=== PATIENT | female | born 1970 | race American Indian/Alaskan Native ===

== ENCOUNTER 2019-06-01 13:29 | Emergency (ER) | payer SELFPAY ==
[2019-06-01] MEDS ORDERED: HYDROcodone/ACETAMINOPHEN 5-325 MG TAB PO ONE (14:02)
[2019-06-01] MEDS ORDERED: IBUPROFEN 800 MG TAB PO ONE (14:02)
[2019-06-01] MEDS ORDERED: TETANUS,DIPH,PERTUSS(ACELL) VACCINE 0.5 ML SYRINGE IM ONE (14:02)
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
[2019-06-01 16:49] VITALS: BP 129/73
== END 2019-06-01 17:01 | disposition home or self-care (01) ==
LOC: ED 13:29
DX: T22.20XA Burn of second degree of shoulder and upper limb, except wrist and hand, unspecified site, initial encounter (principal); X15.8XXA Contact with other hot household appliances, initial encounter; Y93.89 Activity, other specified; Y92.89 Other specified places as the place of occurrence of the external cause; Y99.8 Other external cause status
CPT/HCPCS: 90471; 90715; 99282

== ENCOUNTER 2019-10-06 19:58 | Emergency (ER) | payer OTHER ==
[2019-10-06 21:23] VITALS: BP 130/60
--- NOTE | 2019-10-06 21:37 | Emergency Department Report ---
Blank Doc - Documentation Documentation: 49-year-old female that presents with abscess to buttock area. Patient has ta chycardia and fever in triage. This initial assessment/diagnostic orders/clinical plan/treatment(s) is/are subject to change based on patient's health status, clinical progression and re- assessment by fellow clinical providers in the ED. Further treatment and workup at subsequent clinical providers discretion. Patient/guardians urged not to elope from the ED as their condition may be serious if not clinically assessed and managed. Initial orders include: 1- Patient sent to [facility] for further evaluation and treatment 2- labs
[2019-10-06] MEDS ORDERED: IBUPROFEN 600 MG TAB PO ONE (21:38)
[2019-10-06 21:53] LABS: Hematocrit 28.6 % (30.3-42.9); Hemoglobin 9.1 gm/dl (10.1-14.3); Mean Corpuscular HGB Conc 32 % (30-34); Mean Corpuscular Volume 75 fl (79-97); Platelet Count 455 K/mm3 (140-440); Red Blood Count 3.84 M/mm3 (3.65-5.03)
[2019-10-06 21:54] LABS: Red Cell Distribution Width 23.1 % (13.2-15.2)
[2019-10-06 22:10] LABS: BUN/Creatinine Ratio 14; Blood Urea Nitrogen 11 mg/dL (7-17); Calcium 9.7 mg/dL (8.4-10.2); Hemolysis Index 3
[2019-10-06 22:26] LABS: Basophils % (Manual) 0 % (0.0-1.8); Eosinophils % (Manual) 0 % (0.0-4.3); Total Cells Counted 100
[2019-10-06 22:28] LABS: Anisocytosis 2+; Large Platelets Few; Platelet Estimate Consistent w Auto; Target Cells Few; Tear Drop Cells Rare
[2019-10-07] MEDS ORDERED: IBUPROFEN 600 MG TAB PO ONE (00:04)
[2019-10-07] MEDS ORDERED: SULFAMETHOXAZOLE/TRIMETHOPRIM 800/160MG DS TAB PO ONE (00:30)
[2019-10-07] MEDS ORDERED: HYDROmorphone 1 MG/1 ML INJ IM ONE (00:36)
[2019-10-07] MEDS ORDERED: ONDANSETRON 4 MG ODT TAB PO ONE (00:36)
[2019-10-07] MEDS ORDERED: CLINDAMYCIN 300 MG CAP PO ONE (00:36)
[2019-10-07] MEDS ORDERED: SODIUM CHLORIDE 0.9% 1000 ML 1,000 ML IV ONE ×2 (00:41→00:43)
[2019-10-07] MEDS ORDERED: HYDROmorphone 1 MG/1 ML INJ IV ONE (00:41)
[2019-10-07] MEDS ORDERED: ONDANSETRON 4 MG/2 ML INJ IV ONE (00:41)
--- NOTE | 2019-10-07 00:43 | Emergency Department Report ---
ED General Adult HPI - General Chief complaint: Skin/Abscess/Foreign Body Stated complaint: CYST ON BUTTOCKS Time Seen by Provider: 10/06/19 21:36 Source: patient Mode of arrival: Ambulatory Limitations: No Limitations - History of Present Illness Initial comments: Patient is a 49-year-old -[place] female with no past medical history presents to the ED with acute onset persistent painful swollen erythematous maculopapular rash on left gluteus for the last 4 days, and also intermittent fever with chills, diffuse body aches and pains and generalized weakness. Patient states that the fever has been intermittent for the last 2 days despite taking [id number] medications. Patient denies chest pain, traumatic injury, nausea, vomiting, diarrhea, dizziness, headache, shortness of breath, dysuria, urinary frequency and urgency, abdominal pain, vaginal bleeding or vaginal discharge. MD Complaint: left gluteus rash; fever and chills and body aches -: Sudden, days(s) (4) Location: buttocks (left gluteus) Radiation: non-radiation Severity scale (0 -10): 7 Quality: aching, sharp Consistency: constant Improves with: none Worsens with: movement Associated Symptoms: denies other symptoms, rash (erythematous swollen painful rash). denies: confusion, chest pain, cough, diaphoresis, malaise, nausea/vomiting, shortness of breath, syncope, weakness Treatments Prior to Arrival: none - Related Data Previous Rx's Medication Instructions Recorded Last Taken Type HYDROcodone/APAP 5-325 [[place] 1 each PO Q6HR PRN #14 tablet 06/01/19 Unknown Rx 5/325] Silver Sulfadiazine [Silvadene] 1 applicatio TP BID #30 cream..g. 06/01/19 Unknown Rx Clindamycin [Clindamycin CAP] 300 mg PO Q8HR #60 capsule 10/07/19 Unknown Rx Ibuprofen [Motrin] 600 mg PO Q8H PRN #24 tablet 10/07/19 Unknown Rx Ondansetron [Zofran Odt] 4 mg PO Q6HR PRN #15 tab.rapdis 10/07/19 Unknown Rx Sulfamethoxazole/Trimethoprim 1 each PO Q12H #20 tablet 10/07/19 Unknown Rx [Bactrim DS TAB] Allergies Allergy/AdvReac Type Severity Reaction Status Date / Time No Known Allergies Allergy Unverified 06/01/19 13:32 ED Review of Systems ROS: Stated complaint: CYST ON BUTTOCKS Other details as noted in HPI Constitutional: chills, fever, malaise, weakness Eyes: denies: eye pain, eye discharge, vision change ENT: denies: ear pain, throat pain Respiratory: denies: cough, shortness of breath, wheezing Cardiovascular: denies: chest pain, palpitations Endocrine: no symptoms reported Gastrointestinal: denies: abdominal pain, nausea, vomiting, diarrhea Genitourinary: denies: urgency, dysuria, discharge Musculoskeletal: denies: back pain, joint swelling, arthralgia Skin: rash (Erythematous maculopapular rash on left gluteus), change in color. denies: lesions Neurological: denies: headache, weakness, paresthesias Psychiatric: denies: anxiety, depression Hematological/Lymphatic: denies: easy bleeding, easy bruising ED Past Medical Hx - Social History Smoking Status: Never Smoker Substance Use Type: None - Medications Home Medications: Home Medications Medication Instructions Recorded Confirmed Last Taken Type HYDROcodone/APAP 5-325 [[place] 1 each PO Q6HR PRN #14 tablet 06/01/19 Unknown Rx 5/325] Silver Sulfadiazine [Silvadene] 1 applicatio TP BID #30 cream..g. 06/01/19 Un known Rx Clindamycin [Clindamycin CAP] 300 mg PO Q8HR #60 capsule 10/07/19 Unknown Rx Ibuprofen [Motrin] 600 mg PO Q8H PRN #24 tablet 10/07/19 Unknown Rx Ondansetron [Zofran Odt] 4 mg PO Q6HR PRN #15 tab.rapdis 10/07/19 Unknown Rx Sulfamethoxazole/Trimethoprim 1 each PO Q12H #20 tablet 10/07/19 Unknown Rx [Bactrim DS TAB] ED Physical Exam - General Limitations: No Limitations General appearance: alert, in no apparent distress - Head Head exam: Present: atraumatic, normocephalic, normal inspection - Eye Eye exam: Present: normal appearance, PERRL, EOMI Pupils: Present: normal accommodation - ENT ENT exam: Present: normal exam, normal orophraynx, mucous membranes moist, TM's normal bilaterally, normal external ear exam - Neck Neck exam: Present: normal inspection, full ROM - Respiratory Respiratory exam: Present: normal lung sounds bilaterally. Absent: respiratory distress, wheezes, rhonchi, chest wall tenderness, accessory muscle use, decreased breath sounds - Cardiovascular Cardiovascular Exam: Present: regular rate, normal rhythm, normal heart sounds. Absent: systolic murmur, diastolic murmur, rubs, gallop - GI/Abdominal GI/Abdominal exam: Present: soft, normal bowel sounds. Absent: tenderness, guarding, rebound, hyperactive bowel sounds, hypoactive bowel sounds, mass - Extremities Exam Extremities exam: Present: normal inspection, full ROM, normal capillary refill - Back Exam Back exam: Present: normal inspection, full ROM. Absent: tenderness, CVA tenderness (R), muscle spasm, paraspinal tenderness - Neurological Exam Neurological exam: Present: alert, oriented X3, CN II-XII intact, normal gait, reflexes normal - Psychiatric Psychiatric exam: Present: normal affect, normal mood - Skin Skin exam: Present: warm, dry, intact, normal color, rash (erythematous mac ulopapular nonfluctuant rash with tenderness on left gluteus) ED Course Vital Signs 10/06/19 10/06/19 10/06/19 20:22 21:24 21:30 Temperature 101.3 F H 101.3 F H 99.8 F H Pulse Rate 93 H 93 H 88 Respiratory 20 20 18 Rate Blood Pressure 130/60 130/60 O2 Sat by Pulse 98 98 99 Oximetry ED Medical Decision Making - Lab Data Result diagrams: 10/07/19 01:11 10/07/19 01:11 - Medical Decision Making This is a 49-year-old female who presented to the ED with acute onset persistent painful swollen erythematous nonfluctuant rash on left gluteus. In the ED, patient is alert and oriented x3 and is not in any distress but febrile in triage. Patient was treated for pain and lab test results were reviewed and initially showed acute leukocytosis of 13,500 and which improved subsequently to 10,000. The rest of the lab test results are nonactionable. Patient was treated for pain in the ED and also received clindamycin 900 mg IV x1, Bactrim DS p.o. x1 and normal saline 2 L IV bolus. On reevaluation, patient's pain is well controlled with medications. Patient was discharged home on pain medications and oral antibiotics and was advised to return to the ED immediately if symptoms get worse otherwise follow-up with a primary care physician in 7 to 10 days for reevaluation. Patient was also advised to return to the ED immediately if symptoms get worse. - Differential Diagnosis cellulitis; abscess; folliculitis Critical care attestation.: If time is entered above; I have spent that time in minutes in the direct care of this critically ill patient, excluding procedure time. ED Disposition Clinical Impression: Cellulitis and abscess of buttock, Fever and chills Disposition: TO HOME OR SELFCARE Is pt being admited?: No Does the pt Need Aspirin: No Condition: Stable Instructions: Cellulitis (ED), Abscess (ED) Additional Instructions: Take medication with food, drink plenty of fluids and follow-up with your primary care physician in 7 to 10 days for reevaluation. Return to the ED immediately if symptoms get worse. Prescriptions: Sulfamethoxazole/Trimethoprim [Bactrim DS TAB] 1 each PO Q12H #20 tablet Clindamycin [Clindamycin CAP] 300 mg PO Q8HR #60 capsule Ibuprofen [Motrin] 600 mg PO Q8H PRN #24 tablet PRN Reason: Pain Ondansetron [Zofran Odt] 4 mg PO Q6HR PRN #15 tab.rapdis PRN Reason: Nausea Referrals: [facility] [Outside] - 3-5 Days Time of Disposition: 02:49 Print Language: [place]AST [place]
[2019-10-07 01:26] LABS: Basophils # (Auto) 0.1 K/mm3 (0.0-0.1); Basophils % (Auto) 0.6 % (0.0-1.8); Eosinophils # (Auto) 0.1 K/mm3 (0.0-0.4); Eosinophils % (Auto) 0.7 % (0.0-4.3); Hematocrit 28.5 % (30.3-42.9); Hemoglobin 9.1 gm/dl (10.1-14.3); Lymphocytes # (Auto) 2.4 K/mm3 (1.2-5.4); Lymphocytes % (Auto) 24.3 % (13.4-35.0); Mean Corpuscular HGB Conc 32 % (30-34); Mean Corpuscular Volume 74 fl (79-97); Monocytes # (Auto) 0.7 K/mm3 (0.0-0.8); Monocytes % (Auto) 7.1 % (0.0-7.3); Platelet Count 438 K/mm3 (140-440); Red Blood Count 3.84 M/mm3 (3.65-5.03)
[2019-10-07 01:50] LABS: Alanine Aminotransferase 8 units/L (7-56); Albumin 4.5 g/dL (3.9-5); BUN/Creatinine Ratio 15; Blood Urea Nitrogen 9 mg/dL (7-17); Calcium 9.5 mg/dL (8.4-10.2); Hemolysis Index 0
== END 2019-10-07 03:45 | disposition home or self-care (01) ==
LOC: ED 19:58
DX: L02.31 Cutaneous abscess of buttock (principal); L03.317 Cellulitis of buttock; Z79.899 Other long term (current) drug therapy
CPT/HCPCS: 36415; 80048; 80053; 82140; 85007; 85025; 87040; 96365; 96375; 99283; J2405; J7030

== ENCOUNTER 2019-11-24 07:49 | Emergency (ER) | payer OTHER ==
[2019-11-24 07:59] VITALS: BP 139/81
--- NOTE | 2019-11-24 10:59 | Emergency Department Report ---
Abscess Boil HPI - HPI Chief Complaint: Skin/Abscess/Foreign Body Stated Complaint: BOIL ON VAGINAL AREA/PAIN Time Seen by Provider: 11/24/19 09:26 Duration: 1 Week Location: Other (left labia majora) Severity: Mild History: Yes Pain, No Fever, No Purulent Drainage, No Numbness, No Foreign Body, No Previous History, No Insect Bite HPI: This is a 49-year-old female nontoxic, well nourished in appearance, no acute signs of distress presents to the ED with c/o of pain and swelling to left labia majora. Patient denies any pus or drainage. Patient denies any fever, chills, nausea, vomiting, chest pain, shortness of breath, headache or stiff neck. Patient denies any allergies or significant past medical history. Home Medications: Previous Rx's Medication Instructions Recorded Last Taken Type HYDROcodone/APAP 5-325 [[place] 1 each PO Q6HR PRN #14 tablet 06/01/19 Unknown Rx 5/325] Silver Sulfadiazine [Silvadene] 1 applicatio TP BID #30 cream..g. 06/01/19 Unknown Rx Acetaminophen/Codeine [Tylenol 1 tab PO Q6H PRN #12 tab 10/07/19 Unknown Rx /Codeine # 3 tab] Clindamycin [Clindamycin CAP] 300 mg PO Q8HR #60 capsule 10/07/19 Unknown Rx Ibuprofen [Motrin] 600 mg PO Q8H PRN #24 tablet 10/07/19 Unknown Rx Ondansetron [Zofran Odt] 4 mg PO Q6HR PRN #15 tab.rapdis 10/07/19 Unknown Rx Sulfamethoxazole/Trimethoprim 1 each PO Q12H #20 tablet 10/07/19 Unknown Rx [Bactrim DS TAB] Clindamycin [Clindamycin CAP] 300 mg PO Q8H #21 cap 11/24/19 Unknown Rx Naproxen 500 mg PO Q12H PRN #20 tablet 11/24/19 Unknown Rx Allergies/Adverse Reactions: Allergies Allergy/AdvReac Type Severity Reaction Status Date / Time No Known Allergies Allergy Verified 11/24/19 07:54 ED Review of Systems ROS: Stated complaint: BOIL ON VAGINAL AREA/PAIN Other details as noted in HPI Constitutional: denies: chills, fever Eyes: denies: eye pain, eye discharge, vision change ENT: denies: ear pain, throat pain Respiratory: denies: cough, shortness of breath, wheezing Cardiovascular: denies: chest pain, palpitations Endocrine: no symptoms reported Gastrointestinal: denies: abdominal pain, nausea, diarrhea Genitourinary: denies: urgency, dysuria, discharge Musculoskeletal: denies: back pain, joint swelling, arthralgia Skin: denies: rash, lesions Neurological: denies: headache, weakness, paresthesias Psychiatric: denies: anxiety, depression Hematological/Lymphatic: denies: easy bleeding, easy bruising ED Past Medical Hx - Past Medical History Previous Medical History?: No - Surgical History Past Surgical History?: No - Social History Smoking Status: Never Smoker Substance Use Type: Alcohol - Medications Home Medications: Home Medications Medication Instructions Recorded Confirmed Last Taken Type HYDROcodone/APAP 5-325 [[place] 1 each PO Q6HR PRN #14 tablet 06/01/19 Unknown Rx 5/325] Silver Sulfadiazine [Silvadene] 1 applicatio TP BID #30 cream..g. 06/01/19 Unknown Rx Acetaminophen/Codeine [Tylenol 1 tab PO Q6H PRN #12 tab 10/07/19 Unknown Rx /Codeine # 3 tab] Clindamycin [Clindamycin CAP] 300 mg PO Q8HR #60 capsule 10/07/19 Unknown Rx Ibuprofen [Motrin] 600 mg PO Q8H PRN #24 tablet 10/07/19 Unknown Rx Ondansetron [Zofran Odt] 4 mg PO Q6HR PRN #15 tab.rapdis 10/07/19 Unknown Rx Sulfamethoxazole/Trimethoprim 1 each PO Q12H #20 tablet 10/07/19 Unknown Rx [Bactrim DS TAB] Clindamycin [Clindamycin CAP] 300 mg PO Q8H #21 cap 11/24/19 Unknown Rx Naproxen 500 mg PO Q12H PRN #20 tablet 11/24/19 Unknown Rx ED Abscess Boil Physical Exam - Exam General: Vital signs noted. No distress. Alert and acting appropriately. Size: 1 cm Exam: Yes Tenderness, Yes Normal Neurologic Exam, Yes Normal Circulation, No Fluctuance, No Surrounding Cellulites/Erythema, No Lymphangitis, No Crepitation, No Heart Murmur Exam: George Barry RN present during exam. There is no induration or fluctuance. There is tenderness with some slight swelling noted on exam. ED Course Vital Signs 11/24/19 07:58 Temperature 98.1 F Pulse Rate 83 Respiratory 20 Rate Blood Pressure 139/81 O2 Sat by Pulse 99 Oximetry - Reevaluation(s) Reevaluation #1: 11/24/19 10:56 Patient is speaking in full sentences with no signs of distress noted. Critical care attestation.: If time is entered above; I have spent that time in minutes in the direct care of this critically ill patient, excluding procedure time. ED Medical Decision Making - Medical Decision Making This is a 49-year-old female that presents with abscess. Patient is stable and was examined by me. There is no induration, fluctuance. There is tenderness. Patient was instructed to return to emergency room if symptoms of swelling worsens and develops induration/fluctuance as this needs to be lanced. T patient be discharged with clindamycin. Patient was referred to Follow-up with a primary care doctor in 3-5 days or if symptoms worsen and continue return to emergency room as soon as possible. At time of discharge, the patient does not seem toxic or ill in appearance. No acute signs of distress noted. Patient agrees to discharge treatment plan of care. No further questions noted by the patient. ED Disposition Clinical Impression: Abscess of labia majora Disposition: DC-01 TO HOME OR SELFCARE Is pt being admited?: No Does the pt Need Aspirin: No Condition: Stable Instructions: Abscess (ED) Additional Instructions: Follow-up with a primary care doctor in 3-5 days or if symptoms worsen and continue return to emergency room as soon as possible. As instructed and educated to you in the ER, return to emergency room if swelling worsens and develops induration and fluctuance as this indicates procedure must be performed. Prescriptions: Clindamycin [Clindamycin CAP] 300 mg PO Q8H #21 cap Naproxen 500 mg PO Q12H PRN #20 tablet PRN Reason: Pain , Severe (7-10) Referrals: DEMETRIA CASEY MD [Primary Care Provider] - 3-5 Days WILMER HERNANDEZ MD [Staff Physician] - 3-5 Days [facility] [Provider Group] - 3-5 Days Forms: Work/School Release Form(ED)
== END 2019-11-24 11:31 | disposition home or self-care (01) ==
LOC: ED 07:49
DX: N76.4 Abscess of vulva (principal); Z79.899 Other long term (current) drug therapy
CPT/HCPCS: 99282

== ENCOUNTER 2021-03-05 11:02 | Emergency (ER) | payer SELFPAY ==
[2021-03-05 12:18] VITALS: BP 147/81
--- NOTE | 2021-03-05 13:32 | Emergency Department Report ---
- General Chief complaint: Skin/Abscess/Foreign Body Stated complaint: BUMP UNDER ARM Time Seen by Provider: 03/05/21 13:28 Source: patient Mode of arrival: Ambulatory Limitations: No Limitations - History of Present Illness Initial comments: Patient is a 50-year-old female presents emergency room complaints of a left axillary abscess that began a week ago. She states yesterday it opened and drained on its own. She states that she has had these in the past in different areas and they usually self resolve and she is never had to have an I&D before. She denies any fever, nausea, vomiting, diarrhea, chills. No past medical history. No allergies to medicines. - Related Data Previous Rx's Medication Instructions Recorded Last Taken Type HYDROcodone/APAP 5-325 [Jewell 1 each PO Q6HR PRN #14 tablet 06/01/19 Unknown Rx 5/325] Silver Sulfadiazine [Silvadene] 1 applicatio TP BID #30 cream..g. 06/01/19 Unknown Rx Acetaminophen/Codeine [Tylenol 1 tab PO Q6H PRN #12 tab 10/07/19 Unknown Rx /Codeine # 3 tab] Clindamycin [Clindamycin CAP] 300 mg PO Q8HR #60 capsule 10/07/19 Unknown Rx Ibuprofen [Motrin] 600 mg PO Q8H PRN #24 tablet 10/07/19 Unknown Rx Ondansetron [Zofran Odt] 4 mg PO Q6HR PRN #15 tab.rapdis 10/07/19 Unknown Rx Sulfamethoxazole/Trimethoprim 1 each PO Q12H #20 tablet 10/07/19 Unknown Rx [Bactrim DS TAB] Clindamycin [Clindamycin CAP] 300 mg PO Q8H #21 cap 11/24/19 Unknown Rx Naproxen 500 mg PO Q12H PRN #20 tablet 11/24/19 Unknown Rx Mupirocin [Bactroban 2% OINT] 1 applic TP TID #1 tube 03/05/21 Unknown Rx Sulfamethoxazole/Trimethoprim 1 each PO BID 7 Days #14 tablet 03/05/21 Unknown Rx [Bactrim DS TAB] Allergies Allergy/AdvReac Type Severity Reaction Status Date / Time No Known Allergies Allergy Verified 11/24/19 07:54 Abscess Boil HPI - HPI Chief Complaint: Skin/Abscess/Foreign Body Stated Complaint: BUMP UNDER ARM Time Seen by Provider: 03/05/21 13:28 Home Medications: Previous Rx's Medication Instructions Recorded Last Taken Type HYDROcodone/APAP 5-325 [Jewell 1 each PO Q6HR PRN #14 tablet 06/01/19 Unknown Rx 5/325] Silver Sulfadiazine [Silvadene] 1 applicatio TP BID #30 cream..g. 06/01/19 Unknown Rx Acetaminophen/Codeine [Tylenol 1 tab PO Q6H PRN #12 tab 10/07/19 Unknown Rx /Codeine # 3 tab] Clindamycin [Clindamycin CAP] 300 mg PO Q8HR #60 capsule 10/07/19 Unknown Rx Ibuprofen [Motrin] 600 mg PO Q8H PRN #24 tablet 10/07/19 Unknown Rx Ondansetron [Zofran Odt] 4 mg PO Q6HR PRN #15 tab.rapdis 10/07/19 Unknown Rx Sulfamethoxazole/Trimethoprim 1 each PO Q12H #20 tablet 10/07/19 Unknown Rx [Bactrim DS TAB] Clindamycin [Clindamycin CAP] 300 mg PO Q8H #21 cap 11/24/19 Unknown Rx Naproxen 500 mg PO Q12H PRN #20 tablet 11/24/19 Unknown Rx Mupirocin [Bactroban 2% OINT] 1 applic TP TID #1 tube 03/05/21 Unknown Rx Sulfamethoxazole/Trimethoprim 1 each PO BID 7 Days #14 tablet 03/05/21 Unknown Rx [Bactrim DS TAB] Allergies/Adverse Reactions: Allergies Allergy/AdvReac Type Severity Reaction Status Date / Time No Known Allergies Allergy Verified 11/24/19 07:54 ED Review of Systems ROS: Stated complaint: BUMP UNDER ARM Other details as noted in HPI Comment: All other systems reviewed and negative ED Past Medical Hx - Past Medical History Previous Medical History?: No - Surgical History Past Surgical History?: No - Social History Smoking Status: Never Smoker Substance Use Type: Alcohol - Medications Home Medications: Home Medications Medication Instructions Recorded Confirmed Last Taken Type HYDROcodone/APAP 5-325 [Jewell 1 each PO Q6HR PRN #14 tablet 06/01/19 Unknown Rx 5/325] Silver Sulfadiazine [Silvadene] 1 applicatio TP BID #30 cream..g. 06/01/19 Unknown Rx Acetaminophen/Codeine [Tylenol 1 tab PO Q6H PRN #12 tab 10/07/19 Unknown Rx /Codeine # 3 tab] Clindamycin [Clindamycin CAP] 300 mg PO Q8HR #60 capsule 10/07/19 Unknown Rx Ibuprofen [Motrin] 600 mg PO Q8H PRN #24 tablet 10/07/19 Unknown Rx Ondansetron [Zofran Odt] 4 mg PO Q6HR PRN #15 tab.rapdis 10/07/19 Unknown Rx Sulfamethoxazole/Trimethoprim 1 each PO Q12H #20 tablet 10/07/19 Unknown Rx [Bactrim DS TAB] Clindamycin [Clindamycin CAP] 300 mg PO Q8H #21 cap 11/24/19 Unknown Rx Naproxen 500 mg PO Q12H PRN #20 tablet 11/24/19 Unknown Rx Mupirocin [Bactroban 2% OINT] 1 applic TP TID #1 tube 03/05/21 Unknown Rx Sulfamethoxazole/Trimethoprim 1 each PO BID 7 Days #14 tablet 03/05/21 Unknown Rx [Bactrim DS TAB] ED Physical Exam - General Limitations: No Limitations General appearance: alert, in no apparent distress - Head Head exam: Present: atraumatic, normocephalic - Eye Eye exam: Present: normal appearance - ENT ENT exam: Present: mucous membranes moist - Respiratory Respiratory exam: Absent: respiratory distress, accessory muscle use - Neurological Exam Neurological exam: Present: alert, oriented X3 - Psychiatric Psychiatric exam: Present: normal affect, normal mood - Skin Skin exam: Present: warm, dry, other (3 cm area of induration present to the left axilla, there is a small 2 mm opening present, no fluctuance, no drainage at this time, no significant surrounding erythema ) ED Course Vital Signs 03/05/21 12:17 Temperature 98.0 F Pulse Rate 60 Respiratory 16 Rate Blood Pressure 147/81 O2 Sat by Pulse 100 Oximetry ED Medical Decision Making - Medical Decision Making Patient is a 50-year-old female presents emergency room complaints of a left axillary abscess that began a week ago. She states yesterday it opened and drained on its own. She states that she has had these in the past in different areas and they usually self resolve and she is never had to have an I&D before. She denies any fever, nausea, vomiting, diarrhea, chills. No past medical history. No allergies to medicines. Vitals are stable. On exam:3 cm area of induration present to the left axilla, there is a small 2 mm opening present, no fluctuance, no drainage at this time, no significant surrounding erythema. Examination appears consistent with improving abscess, it has already opened and drained, there is still some remaining cellulitis present. Patient will be placed on antibiotics and discussed the importance of outpatient follow-up in the next 2 to 3 days. Advised patient Please use medication as prescribed. Please keep area clean and dry. Please use warm compresses 3 times a day. May soak in Epson salt. Follow-up with a primary care doctor for reexamination in the next 3 days. Return to emergency room for any new or worsening symptoms. - Differential Diagnosis Abscess, cellulitis, folliculitis, hidradenitis Critical care attestation.: If time is entered above; I have spent that time in minutes in the direct care of this critically ill patient, excluding procedure time. ED Disposition Clinical Impression: Abscess Cellulitis Qualifiers: Site of cellulitis: extremity Site of cellulitis of extremity: axilla Laterality: left Qualified Code(s): L03.112 - Cellulitis of left axilla Disposition: DC-01 TO HOME OR SELFCARE Is pt being admited?: No Does the pt Need Aspirin: No Condition: Stable Instructions: Skin Abscess, Cellulitis, Adult Additional Instructions: Please use medication as prescribed. Please keep area clean and dry. Please use warm compresses 3 times a day. May soak in Epson salt. Follow-up with a primary care doctor for reexamination in the next 3 days. Return to emergency room for any new or worsening symptoms. Prescriptions: Sulfamethoxazole/Trimethoprim [Bactrim DS TAB] 1 each PO BID 7 Days #14 tablet Mupirocin [Bactroban 2% OINT] 1 applic TP TID #1 tube Referrals: your, primary care doctor [Other] - 2-3 Days Time of Disposition: 13:30 Print Language: BULGARIAN
== END 2021-03-05 13:32 | disposition home or self-care (01) ==
LOC: ED 11:02
DX: L03.112 Cellulitis of left axilla (principal)
CPT/HCPCS: 99281

== ENCOUNTER 2021-05-25 19:25 | Emergency (ER) | payer SELFPAY ==
[2021-05-25 20:11] LABS: Basophils % (Auto) 0.7 % (0.0-1.8); Eosinophils # (Auto) 0.2 K/mm3 (0.0-0.4); Eosinophils % (Auto) 2.9 % (0.0-4.3); Hematocrit 38.2 % (30.3-42.9); Hemoglobin 12.8 gm/dl (10.1-14.3); Lymphocytes # (Auto) 2.8 K/mm3 (1.2-5.4); Lymphocytes % (Auto) 46.7 % (13.4-35.0); Mean Corpuscular HGB Conc 34 % (30-34); Mean Corpuscular Volume 93 fl (79-97); Monocytes # (Auto) 0.3 K/mm3 (0.0-0.8); Monocytes % (Auto) 5.3 % (0.0-7.3); Platelet Count 337 K/mm3 (140-440); Red Blood Count 4.09 M/mm3 (3.65-5.03); Red Cell Distribution Width 15.6 % (13.2-15.2)
--- NOTE | 2021-05-25 20:17 | XRay Report ---
CHEST 2 VIEWS, 05/25/2021 INDICATION: Chest pain COMPARISON: None FINDINGS: Support devices: None. Heart: The cardiac silhouette is normal in size. Lungs/pleura: The lungs are clear of focal airspace disease or significant pleural effusion. Additional findings: No significant acute abnormality. IMPRESSION: 1. No evidence of acute cardiopulmonary process. Signer Name: Lori Flor MD Signed: 05/25/2021 8:13 PM Workstation Name: [id number]
[2021-05-25 20:35] LABS: Alanine Aminotransferase 16 units/L (7-56); Albumin 4.4 g/dL (3.9-5); Blood Urea Nitrogen 7 mg/dL (7-17); Calcium 9.5 mg/dL (8.4-10.2); Hemolysis Index 21
[2021-05-25 21:04] LABS: BUN/Creatinine Ratio 12
--- NOTE | 2021-05-25 23:20 | Emergency Department Report ---
ED Chest Pain HPI - General Chief Complaint: Chest Pain Stated Complaint: CHEST PAINS x2 WEEKS Time Seen by Provider: 05/25/21 19:59 Source: patient Mode of arrival: Ambulatory Limitations: No Limitations - History of Present Illness Initial Comments: 31-year-old F [place] female [facility] emerge department complaining of a 2 or more week history of mid chest pain off and on which seems to be related to some movement. Ports no hemoptysis no hematemesis no fever, chills, sweats. No exertional dyspnea or worsening of chest pain. Reports no palpitations no fevers, chills, sweats. MD Complaint: chest pain -: Gradual Pain Radiation: none Severity: mild Quality: aching, dull Consistency: constant Improves With: nothing Worsens With: nothing Context: recent illness re: nausea Treatments Prior to Arrival: none - Related Data On Oral Contraceptives: No Previous Rx's Medication Instructions Recorded Last Taken Type HYDROcodone/APAP 5-325 [[place]ough [place] 1 each PO Q6HR PRN #14 tablet 06/01/19 Unknown Rx 5/325] Silver Sulfadiazine [Silvadene] 1 applicatio TP BID #30 cream..g. 06/01/19 Unknown Rx Acetaminophen/Codeine [Tylenol 1 tab PO Q6H PRN #12 tab 10/07/19 Unknown Rx /Codeine # 3 tab] Clindamycin [Clindamycin CAP] 300 mg PO Q8HR #60 capsule 10/07/19 Unknown Rx Ibuprofen [Motrin] 600 mg PO Q8H PRN #24 tablet 10/07/19 Unknown Rx Ondansetron [Zofran Odt] 4 mg PO Q6HR PRN #15 tab.rapdis 10/07/19 Unknown Rx Sulfamethoxazole/Trimethoprim 1 each PO Q12H #20 tablet 10/07/19 Unknown Rx [Bactrim DS TAB] Clindamycin [Clindamycin CAP] 300 mg PO Q8H #21 cap 11/24/19 Unknown Rx Naproxen 500 mg PO Q12H PRN #20 tablet 11/24/19 Unknown Rx Mupirocin [Bactroban 2% OINT] 1 applic TP TID #1 tube 03/05/21 Unknown Rx Sulfamethoxazole/Trimethoprim 1 each PO BID 7 Days #14 tablet 03/05/21 Unknown Rx [Bactrim DS TAB] Allergies Allergy/AdvReac Type Severity Reaction Status Date / Time No Known Allergies Allergy Verified 11/24/19 07:54 Heart Score - HEART Score History: Slightly suspicious EKG: Normal Age: 45-65 Risk factors: 1-2 risk factors Troponin: < normal limit HEART Score: 2 - EKG Read Time Time EKG Completed: 20:05 EKG Read Time: 20:10 ED Review of Systems ROS: Stated complaint: CHEST PAINS x2 WEEKS Other details as noted in HPI Comment: All other systems reviewed and negative ED Past Medical Hx - Past Medical History Previous Medical History?: No - Surgical History Past Surgical History?: No - Social History Smoking Status: Never Smoker Substance Use Type: Alcohol - Medications Home Medications: Home Medications Medication Instructions Recorded Confirmed Last Taken Type HYDROcodone/APAP 5-325 [Rough [place] Ready 1 each PO Q6HR PRN #14 tablet 06/01/19 Unknown Rx 5/325] Silver Sulfadiazine [Silvadene] 1 applicatio TP BID #30 cream..g. 06/01/19 Unknown Rx Acetaminophen/Codeine [Tylenol 1 tab PO Q6H PRN #12 tab 10/07/19 Unknown Rx /Codeine # 3 tab] Clindamycin [Clindamycin CAP] 300 mg PO Q8HR #60 capsule 10/07/19 Unknown Rx Ibuprofen [Motrin] 600 mg PO Q8H PRN #24 tablet 10/07/19 Unknown Rx Ondansetron [Zofran Odt] 4 mg PO Q6HR PRN #15 tab.rapdis 10/07/19 Unknown Rx Sulfamethoxazole/Trimethoprim 1 each PO Q12H #20 tablet 10/07/19 Unknown Rx [Bactrim DS TAB] Clindamycin [Clindamycin CAP] 300 mg PO Q8H #21 cap 11/24/19 Unknown Rx Naproxen 500 mg PO Q12H PRN #20 tablet 11/24/19 Unknown Rx Mupirocin [Bactroban 2% OINT] 1 applic TP TID #1 tube 03/05/21 Unknown Rx Sulfamethoxazole/Trimethoprim 1 each PO BID 7 Days #14 tablet 03/05/21 Unknown Rx [Bactrim DS TAB] ED Physical Exam - General Limitations: No Limitations General appearance: alert, in no apparent distress - Head Head exam: Present: atraumatic, normocephalic - Eye Eye exam: Present: normal appearance - ENT ENT exam: Present: mucous membranes moist - Neck Neck exam: Present: normal inspection - Respiratory Respiratory exam: Present: normal lung sounds bilaterally, chest wall tenderness (With some palpation to the central chest.). Absent: respiratory distress, wheezes, rales, rhonchi, decreased breath sounds - Cardiovascular Cardiovascular Exam: Present: regular rate, normal rhythm. Absent: systolic murmur, diastolic murmur, rubs, gallop - GI/Abdominal GI/Abdominal exam: Present: soft, normal bowel sounds - Extremities Exam Extremities exam: Present: normal inspection - Back Exam Back exam: Present: normal inspection - Neurological Exam Neurological exam: Present: alert, oriented X3 - Psychiatric Psychiatric exam: Present: normal affect, normal mood - Skin Skin exam: Present: warm, dry, intact, normal color. Absent: rash ED Course Vital Signs 05/25/21 19:39 Temperature 98.7 F Pulse Rate 73 Respiratory 16 Rate Blood Pressure 139/74 O2 Sat by Pulse 98 Oximetry BJ score - Bj Score Age > 65: (0) No Aspirin use within the Past 7 Days: (0) No 3 or more CAD Risk Factors: (0) No 2 or more Angina events in past 24 hrs: (0) No Known CAD with more than 50% Stenosis: (0) No Elevated Cardiac Markers: (0) No ST Deviation Greater than 0.5mm: (0) No BJ Score: 0 ED Medical Decision Making - Lab Data Result diagrams: 05/25/21 19:54 05/25/21 19:54 - Radiology Data Radiology results: report reviewed [facility] [address] [place] [address] XRay Report Signed Patient: MONISHA OHARA MR#: [id number] : 1970 Acct:[id number] Age/Sex: 51 / F ADM Date: 05/25/21 Loc: ED Attending Dr: Ordering Physician: ED MD CARL Date of Service: 05/25/21 Procedure(s): XR chest routine 2V Accession Number(s): [id number] cc: ED MD CARL Fluoro Time In Minutes: CHEST 2 VIEWS, 05/25/2021 INDICATION: Chest pain COMPARISON: None FINDINGS: Support devices: None. Heart: The cardiac silhouette is normal in size. Lungs/pleura: The lungs are clear of focal airspace disease or significant pleural effusion. Additional findings: No significant acute abnormality. IMPRESSION: 1. No evidence of acute cardiopulmonary process. Signer Name: Lori Flor MD Signed: 05/25/2021 8:13 PM Workstation Name: [id number] Transcribed By: RICHARD Dictated By: Lori Flor MD Electronically Authenticated By: Lori Flor MD Signed Date/Time: 05/25/212012 DD/ 11 TD/TT: - Medical Decision Making This patient presents with chest pain that is very unlikely angina or acute coronary syndrome. The emergency department evaluation has not identified any cause for suspicion that this chest pain has a cardiac etiology. Based on their history, EKG (which showed no evidence of ischemia or infarction) and imaging, in addition to the patient's physical exam, I see no evidence at this time for a malignant etiology for the patient's chest pain. There is no acute evidence for pulmonary embolus, acute myocardial infarction, pneumothorax, Boerhaeve syndrome, cardiac tamponade, thoracic artery dissection, or any other emergent cardiac, pulmonary or aortic pathology. Given the low pre-test probability for cardiac etiology of chest pain and the absence of any sign of ischemia or infarction, discharge for outpatient follow-up and further evaluation is reasonable. I have explained to the patient that even though a cardiac problem is very unlikely, follow-up and further testing is required to reduce further the already small uncertainty that exists. Other life-threatening diagnoses have been considered. The patient understands the need to return immediately if their symptoms worsen or they develop any new symptoms, and not to engage in any significant exertional activity until follow-up is obtained. Critical care attestation.: If time is entered above; I have spent that time in minutes in the direct care of this critically ill patient, excluding procedure time. ED Disposition Clinical Impression: Chest pain Disposition: 01 HOME / SELF CARE / HOMELESS Is pt being admited?: No Does the pt Need Aspirin: No Condition: Stable Instructions: Nonspecific Chest Pain, Adult Additional Instructions: You were evaluated emergency department today for chest pain. Your evaluation has shown no medicals conditions requiring emergent intervention at this time, however recommend that you follow-up with your primary care physician or your vat overhauler soon as possible for further testing as an outpatient. Please schedule an appointment for follow-up with your primary care physician as soon as possible. Return to emergency department if you expands worsening uncontrolled chest pain, shortness of breath, lightheadedness, feeling faint, nausea, vomiting or any other concerning symptoms. Referrals: HIRAM SORENSON MD [Staff Physician] - 3-5 Days
[2021-05-26 01:07] VITALS: BP 144/77
--- NOTE | 2021-05-27 09:42 | Electrocardiograph Report ---
[facility] Test Date: 2021-05-25 Test Time: 20:43:15 Pat Name: MONISHA OHARA Department: Room: Gender: F Field Contact Person: CLAUDIA : 1970 Requested By: RENEA TRUJILLO Order Number: [id number] Reading MD: Tom Guzman Measurements Intervals [place] Rate: 70 P: 17 ME: 161 QRS: 66 QRSD: 78 T: 53 QT: 406 QTc: 439 Interpretive Statements Sinus rhythm No previous ECG available for comparison Electronically Signed On 05-27-2021 9:41:34 EDT by Tom Guzman
== END 2021-05-25 23:55 | disposition home or self-care (01) ==
LOC: ED 19:25
DX: R07.9 Chest pain, unspecified (principal)
CPT/HCPCS: 36415; 71046; 80048; 80053; 84484; 85025; 93005; 99283